=== PATIENT | male | born 1930 | race African-American/Black ===

== ENCOUNTER 2016-05-26 15:06 | Inpatient (IN) | payer MEDICARE, OTHER ==
--- NOTE | ~2016-05-26 | CT16 ---
[facility] A Service of [facility] & [facility] RADIOLOGY TEXT RESULTS PATIENT: RAFFI ROSS [facility] [id number] : 31 UNIT #: [id number] AGE: [address]: Lynda Salas MD SEX: M ORDER DR: [id number] [facility]. [place], [place] [address] [id number] MR#: [id number] Acc #: [id number] NAME: RAFFI ROSS : 1930 SEX: M STUDY DATE/TIME: 05/26/2016 18:23 UNIT: [facility] ROOM: STUDY DESCRIPTION: CT Angio Chest for PE Attending Physician: John Wheatley M.D. Ordering Physician: John Wheatley M.D. Primary Care Physician: Erasmo Abdi M.D. MEDICAL IMAGING REPORT This report is preliminary unless electronic signature is present EXAM CT scan of the chest with intravenous contrast, 05/26/2016 HISTORY Chest pain beginning at 8:00 a.m. this morning. Hypertension. Evaluate for pulmonary embolus. TECHNIQUE Spiral CT was performed through the chest following intravenous contrast administration using pulmonary embolus protocol. 3-D reconstructions of the chest were then performed following intravenous contrast administration. This CT exam was performed with one or more of the following radiation dose reduction techniques: Automatic exposure control, adjustment of mA and/or kV according to patient size, and iterative reconstruction. FINDINGS There are small emboli in the segmental branch of the right lower lobe pulmonary artery. Findings were called to the ordering clinician at 6:55 p.m. on 05/26/2016. The heart is normal in size. There is no significant thoracic adenopathy. There are no pleural effusions. Atelectasis is seen at the lung bases. Large calcified granuloma, right lower lobe. IMPRESSION Small emboli in the segmental branches of the right lower lobe pulmonary artery. STAT * RESULT Dictated by... [facility] A Service of [facility] & [facility] RADIOLOGY TEXT RESULTS PATIENT: RAFFI ROSS LOCATION: [facility] [id number] : 31 UNIT #: [id number] AGE: [address]: Lynda Salas MD SEX: M ORDER DR: Ozzie Dasilva M.D. THIS IS AN ELECTRONICALLY VERIFIED REPORT Ozzie Dasilva M.D. at 05/27/2016 8:00 AM KRT/nae TD: 05/26/2016 20:01 JOB #: [id number] MEDICAL IMAGING REPORT COPY
--- NOTE | ~2016-05-26 | CO ---
Unit #: [id number] #: [id number] Patient: RAFFI WALLER [id number] [facility]. [address] [address] [id number] I MR#: [id number] NAME: RAFFI WALLER ROOM: 550 Age: 85 Sex: M Admission Date: 05/26/2016 : 1930 Attending Physician: Don Weiss M.D. Primary Care Physician: Erasmo Abdi M.D. Consultation Date: 05/27/2016 CONSULTATION REPORT REASON FOR CONSULTATION Chest pain and pulmonary embolus, as well as cardiac management. HISTORY OF PRESENT ILLNESS This is a pleasant 85-year-old male who has been seen in the past by Dr. Vinson. He has a past medical history of [id number]-bukadopmz myocardial infarction, systolic congestive heart failure, stroke with right-sided residual, dementia, immobilization syndrome, chronic kidney disease, coronary artery disease, hypertension, hyperlipidemia, chronic anemia, chronic thrombocytopenia, BPH, and nonsustained ventricular tachycardia. The patient was admitted on 05/26/2016 secondary to complaints of chest pain. This was reported to be substernal in nature with no radiation. He also was found to have elevated D-dimer at 1400. CTA of the chest was performed which showed pulmonary embolus which appear to be small in the segmental branch of the right lower lobe. The patient has been started on Lovenox therapy. The patient also had a venous Doppler performed which was negative for any evidence of DVT. Initial EKG shows sinus rhythm, first-degree AV block, rate of 64 beats per minute, LVH with repolarization abnormality. Cannot rule out previous inferior infarct. No acute ischemic change. Nonspecific ST-T-wave abnormalities are noted. Initial cardiac enzymes have been negative x2. The patient did undergo cardiac catheterization in July 2013. Cath at that time, showed 50% stenosis in the left main, 50% stenosis in the proximal and mid LAD, and total occlusion of the RCA beyond the origin of the acute marginal branch with acute marginal branch 80% to 90% stenosis with collateralization. Recommendation at that time was medical management. He also had a 2D echocardiogram performed in December 2015 which did show improvement in his ejection fraction. EF at that time was 35% to 40%, impaired LV relaxation, significant hypokinesis of the apex, skct-mn-yeinqouf mitral regurgitation, mild tricuspid regurgitation, RVSP of 36 mmHg. He did have moderate pericardial effusion but no evidence of tamponade at that time. At present, the patient is resting in bed. He can give some information but is a poor historian. He is unsure of his medications. Apparently, he was admitted from home. His son, Cuate Waller, is the power of associate attorney and makes his medical decisions. At present, he denies any complaints of chest pain or shortness of breath. He is resting in bed. He appears comfortable. He does have contractures. Unit #: [id number] #: [id number] Patient: RAFFI WALLER The patient is being admitted secondary to his pulmonary embolus for further evaluation and treatment. PAST MEDICAL HISTORY 1. Known coronary artery disease with cardiac catheterization in July 2013 that showed 50% stenosis left main, 50% stenosis in the proximal to mid LAD, total occlusion of the RCA, beyond the acute marginal branch 80% to 90% stenosis with collateralization. Plan at that time was medical management. 2. Systolic congestive heart failure. Echocardiogram on 10/29/2013, showed an EF of 25% to 30%. Repeat echocardiogram in December 2015 showed EF of 35% to 40% with impaired LV relaxation, significant hypokinesis of the apex, ykrr-iy-musriulg MR, mild tricuspid regurgitation, RVSP of 36 mmHg, moderate pericardial effusion but no evidence of tamponade. 3. History of CVA with right-sided residual. 4. History of bradycardia secondary to beta malu usage. 5. Chronic kidney disease. 6. Chronic anemia. 7. Chronic thrombocytopenia. 8. BPH. 9. Hypertension. 10. Hyperlipidemia. 11. History of nonsustained ventricular tachycardia. 12. Immobilization syndrome. 13. Glaucoma. PAST SURGICAL HISTORY 1. Cataract surgery. 2. Hip replacement. 3. Urethral stimulator. 4. Cardiac catheterization in 2013. HOME MEDICATIONS 1. Plavix 75 mg p.o. daily. 2. Norvasc 10 mg p.o. daily. 3. Prinivil 10 mg p.o. b.i.d. 4. Aspirin 81 mg p.o. daily. 5. Flomax 0.4 mg p.o. daily. 6. Ativan 0.5 mg p.o. h.s. 7. Hydrocodone 5/325 one tab p.o. h.s. 8. Remeron 15 mg p.o. h.s. 9. Namenda 5 mg p.o. b.i.d. 10. Imdur ER 30 mg p.o. q.a.m. 11. Colace 100 mg p.o. daily. ALLERGIES No known drug allergies. SOCIAL HISTORY The patient is from home. He is wheelchair-bound. He does not ambulate. He has contractures. Denies any illicit drugs or alcohol. FAMILY HISTORY Noncontributory secondary to age. REVIEW OF SYSTEMS Unable to be obtained secondary to patient being a poor historian. Unit #: [id number] #: [id number] Patient: RAFFI WALLER PHYSICAL EXAMINATION VITAL SIGNS: Temperature 98.6, respiratory rate 18-20, pulse 60s to 70s, blood pressure 94/62 to 137/77, oxygen saturation 100% on 2 liters nasal cannula, BMI is 19. GENERAL: The patient is a pleasant 85-year-old male who is in no acute distress. He is contractured. He is resting in bed with no complaints at this time. HEENT: Pupils are equal and round. Mucous membranes are moist. NECK: Trachea is midline. No carotid bruits. No JVD. LUNGS: Clear to auscultation. Diminished in the bases. ABDOMEN: Soft, nontender, nondistended. Positive bowel sounds. EXTREMITIES: Pulses are palpable. No cyanosis, clubbing or edema. NEUROLOGIC: He is awake and oriented. He is able to answer simple questions and follow simple commands but is a poor historian. DIAGNOSTIC STUDIES LABORATORY: D-dimer was 1415. Sodium 132, potassium 3.6, chloride 99, CO2 was 27, BUN 12, creatinine 0.7, glucose 117. Troponins have been less than 0.04 times 2. Hemoglobin 14.3, hematocrit 43.7, WBC 11.9, platelet count 187. IMAGING: Chest x-ray shows no acute abnormalities. CTA of the chest shows small pulmonary emboli in the segmental branch of the right lower lobe of the pulmonary artery. CARDIOVASCULAR: EKG shows normal sinus rhythm, 64 beats per minute, first-degree AV block. Criteria for LVH. Cannot rule out previous inferior infarct. Nonspecific ST-T-wave abnormality is noted. No acute ischemia change. ASSESSMENT 1. Chest pain. 2. Pulmonary embolus, small, in the right lower lobe of the pulmonary artery. Venous Doppler was negative for DVT. 3. History of coronary artery disease. See above for prior cath result. 4. Congestive heart failure with ejection fraction of 30% to 35% per 2D echo in December 2015. 5. Hypertension. 6. Hyperlipidemia. 7. Cerebrovascular accident with right-sided residual. 8. Chronic kidney disease. 9. Chronic anemia. 10. Chronic thrombocytopenia. 11. Benign prostatic hypertrophy with chronic Mead catheter. 12. Immobility syndrome. 13. Dementia. 14. Patient is a DNR. PLAN 1. The patient has been admitted secondary to pulmonary emboli. At present he is stable. He has been started on Lovenox therapy. He is a poor historian and unable to give much information. However, Dr. Vinson has spoken with his power of associate attorney who is his son, Cuate Waller, today. It was confirmed with the son that the patient is a DNR. 2. His cardiac enzymes have been negative. He has ruled out for any Unit #: [id number] #: [id number] Patient: RAFFI WALLER acute coronary event. 3. We will have direct care professional to check cost of Eliquis as anticoagulation for his pulmonary embolus. However, the patient does have a history of hematuria in the past and will have to keep an eye out for this. His Plavix will be discontinued. 4. He will have CBC and BMP in the a.m. tomorrow. Dictated by... Sue Ca.P.RNasimaNNasima for Sruthi Vinson M.D. LMW/cs TD: 05/28/2016 21:29 JOB #: [id number] CONSULTATION REPORT X Lina Almendarez APRN X CONSULTATION REPORT
--- NOTE | ~2016-05-26 | CO ---
Unit #: [id number] #: [id number] Patient: RAFFI WALLER [id number] [address] [address] [id number] I MR#: [id number] NAME: RAFFI WALLER ROOM: 550 Age: 85 Sex: M Admission Date: 05/26/2016 : 1930 Attending Physician: Don Weiss M.D. Primary Care Physician: Erasmo Abdi M.D. Consultation Date: 05/30/2016 CONSULTATION REPORT CHIEF COMPLAINT Hematuria. HISTORY OF PRESENT ILLNESS Mr. Waller is an 85-year-old gentleman I have seen in the past with history of urinary retention, Mead catheter placed, chronic indwelling. 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 Patient diagnosed with a pulmonary embolus, started on anticoagulation. The patient is going to be going home with [facility] with the son. The son wanted him evaluated after he developed gross hematuria. The patient is resting comfortably in the bed and responded to questions appropriately. PAST MEDICAL HISTORY 1. Coronary artery disease. 2. Heart attack. 3. Stroke. 4. Chronic kidney disease. 5. Anemia. 6. Hypertension. 7. Hyperlipidemia. 8. Glaucoma. 9. Immobilization syndrome. 10. Cataract surgery. 11. Hip replacement. 12. Previous (1) stim placement. MEDICATIONS 1. Plavix. 2. Norvasc. 3. Prinivil. 4. Aspirin. 5. Flomax. 6. Imdur. 7. Colace. 8. Ativan. 9. Hydrocodone. 10. Remeron. 11. Namenda. 12. Nitrofurantoin. ALLERGIES No known drug allergies. Unit #: [id number] #: [id number] Patient: RAFFI WALLER SOCIAL HISTORY The patient does not smoke. EXAM Afebrile. Abdomen soft. He is contracted. Mead catheter is in place. He has a diaper on. Urine in the catheter is red, somewhat dark. No visible clots. ASSESSMENT Gross hematuria in a patient who is going to be going home with [facility]. Would irrigate the catheter p.r.n. Patient not a surgical candidate. Could place a three-way catheter but if he is going to be at home, not really amenable to having a three-way drip going. More could be done if desired by the patient or the son but, at this time, I would just irrigate the catheter considering he his going to be going home with [facility]. Thanks again for the referral. Dictated by... Rafia Rowan/yovani TD: 05/31/2016 14:20 JOB #: [id number] CONSULTATION REPORT X Manish Valdez MD X CONSULTATION REPORT
--- NOTE | ~2016-05-26 | HP ---
Unit #: [id number] #: [id number] Patient: RAFFI ROSS [id number] [place], [place] [address] [id number] E MR#: [id number] NAME: RAFFI ROSS ROOM: Age: 85 Sex: M Admission Date: 05/26/2016 : 1930 Attending Physician: John Wheatley M.D. Primary Care Physician: Erasmo Abdi M.D. HISTORY AND PHYSICAL CHIEF COMPLAINT Chest pain. HISTORY OF PRESENT ILLNESS The patient is an 85-year-old male with past medical history of hypertension, hyperlipidemia, coronary artery disease, CHF, cerebrovascular accident, chronic kidney disease, chronic anemia, chronic thrombocytopenia, BPH, nonsustained ventricular tachycardia, immobility, dementia, who presented to the emergency department for evaluation of the above. The patient is a poor historian. He apparently was complaining of chest pain. He states that it started yesterday. He states it is mostly in the right side of his chest. He describes it as "a 6," it has been fairly constant. He states that it radiates down his right arm. He denies any nausea. He possibly has associated shortness of breath. He denies any fever. No cough or cold symptoms. In the emergency department, initial pulse and blood pressure were 66 and 153/91 respectively, oxygen saturation was 100% on 2 liters. Chest x-ray showed no acute abnormality. D-dimer was elevated at 1415. The patient had a CT of the chest PE protocol that showed a small emboli in the right lower lobe pulmonary artery. He is being admitted to [facility] for evaluation and further treatment. PAST MEDICAL HISTORY 1. Admission to [facility] 01/09/2016 for chest pain. 2. Coronary artery disease. The patient had a cardiac catheterization in July 2013 that showed 50% stenosis in the left main, 50% stenosis in the proximal med LAD, total occlusion of the RCA with acute marginal branch 80% and 90% stenosis with collateralization. The plan was medical management. 3. Congestive heart failure. The patient had an echocardiogram 10/29/2013 that showed an ejection fraction of 25% to 30% with inferior wall akinesis, mild mitral regurgitation, mild aortic regurgitation, right ventricular systolic pressure was elevated at 30-40 mmHg. The patient has seen Dr. Vinson in the past. 4. History of cerebrovascular accident with right-sided residual. 5. History of bradycardia. 6. Chronic kidney disease. 7. History of anemia. 8. BPH with chronic Mead catheter. 9. Chronic thrombocytopenia. Unit #: [id number] #: [id number] Patient: RAFFI ROSS 10. Hypertension. 11. Hyperlipidemia. 12. History of nonsustained ventricular tachycardia. 13. Glaucoma. 14. Immobilization syndrome. PAST SURGICAL HISTORY 1. Cataract surgery. 2. Hip replacement. 3. Urethral stimulator. ALLERGIES No known allergies. HOME MEDICATIONS Include: 1. Plavix. 2. Norvasc. 3. Prinivil. 4. Aspirin. 5. Flomax. 6. Ativan. 7. Hydrocodone. 8. Remeron. 9. Namenda. 10. Nitrofurantoin. 11. Imdur. 12. Colace. Home medications will need to be reviewed and verified. SOCIAL HISTORY Per record review, there is no tobacco or alcohol use. The patient is wheelchair bound. FAMILY HISTORY Noncontributory secondary to age. REVIEW OF SYSTEMS A complete review of systems is negative except as indicated in the HPI. PHYSICAL EXAMINATION VITAL SIGNS: Temperature 98.6, pulse 66, respirations 13, blood pressure 153/91, oxygen saturation 100% on 2 liters. GENERAL: The patient is an male who is awake and alert in no acute distress. HEENT: Head is atraumatic. Mucous membranes are moist. NECK: Supple. Trachea is midline. LUNGS: Clear to auscultation bilaterally with no increased work of breathing. HEART: Regular rate and rhythm. ABDOMEN: Soft, nontender. Bowel sounds present in all four quadrants. EXTREMITIES: No pedal edema. The patient does have contracture involving the right upper extremity. NEUROLOGIC: Patient is awake and alert. He is oriented to person only. [facility] and the year was 1959. He is moving all extremities. He follows some commands. PSYCHIATRIC: Mood and affect are normal. Patient is cooperative. Unit #: [id number] #: [id number] Patient: RAFFI ROSS SKIN OF EXAMINED AREAS: Warm and dry. DIAGNOSTIC STUDIES LABORATORY: D-dimer 1415. Comprehensive metabolic panel notable for a chloride 98. INR 1. Troponin less than 0.05. Complete blood count is essentially normal. IMAGING: Chest x-ray shows no acute abnormalities. CT of the chest PE protocol shows small emboli involving the right lower lobe pulmonary artery. CARDIOVASCULAR: EKG shows sinus rhythm with first-degree AV block, an occasional PVC at a rate of 64 beats per minute. ASSESSMENT The patient is an 85-year-old male with: 1. Pulmonary embolism. There is an order for Lovenox that has not been given yet. 2. Hypertension. 3. Hyperlipidemia. 4. History of coronary artery disease. 5. Congestive heart failure with an ejection fraction of 25% to 30% from echocardiogram 10/29/2013. 6. Cerebrovascular accident with right-sided residual. 7. Chronic kidney disease. The patient's creatinine is actually 0.8 today. 8. Chronic anemia. Hemoglobin is 13.4 today. 9. Chronic thrombocytopenia. Platelets are 207 today actually. 10. Benign prostatic hypertrophy with chronic Mead catheter. 11. History of nonsustained ventricular tachycardia. 12. Dementia. 13. Immobility. PLAN 1. Admit to immediate level. 2. 2 gram sodium 1800 mL fluid restricted heart healthy diet if passes bedside swallow. 3. Lovenox 1 mg/kg subcu q.12 h. with first dose now. 4. Consult Dr. Pham regarding PE. 5. 2D echo for further evaluation of PE and possible right heart strain. 6. Bilateral lower extremity venous Dopplers. 7. Serial cardiac enzymes. 8. Strict I's and O's. 9. Urinalysis with culture and sensitivity. 10. Daily weights. 11. Fall precautions. 12. Supplemental oxygen for saturations greater than 92%. 13. Repeat labs in the morning. 14. Additional workup and consultants based on above. Unit #: [id number] #: [id number] Patient: RAFFI ROSS Dictated by Rafia Gordon/keesha TD: 05/26/2016 20:47 JOB #: [id number] HISTORY AND PHYSICAL X Lynda Salas MD HISTORY AND PHYSICAL
--- NOTE | ~2016-05-26 | CO ---
Unit #: [id number] #: [id number] Patient: RAFFI ROSS [id number] [address] [address] [id number] I MR#: [id number] NAME: RAFFI ROSS ROOM: 550 Age: 85 Sex: M Admission Date: 05/26/2016 : 1930 Attending Physician: Don Weiss M.D. Primary Care Physician: Erasmo Abdi M.D. Consultation Date: 05/27/2016 CONSULTATION REPORT REASON FOR CONSULT Pulmonary emboli, please evaluate. HISTORY OF PRESENT ILLNESS This 85-year-old gentleman, who is totally bedbound, is an extremely poor historian, states that he is currently not hurting in his chest but it appears from the chart that he came in with chest pain. He has a very long past history of coronary artery disease, hypertension, hyperlipidemia, congestive heart failure, CVA, chronic kidney disease, chronic anemia who is totally bedbound at home, was found to have small volume, unprovoked pulmonary emboli. D-dimer was 1415. We were requested to evaluate. In talking to the patient, it is nearly impossible for him to give me any meaningful history at all. He states that he is not hurting currently so the majority of this was obtained from the chart mainly. PAST MEDICAL HISTORY 1. Coronary artery disease. 2. Congestive heart failure. 3. CVA. 4. CKD. 5. Anemia and thrombocytopenia. 6. History of hypertension. 7. Glaucoma. 8. Immobilization syndrome which I am not sure is well documented on the chart. SOCIAL HISTORY Patient is bedbound. Uses a Hoya chair to get out of bed. Nonsmoker. No alcohol usage. He is currently retired and disabled. FAMILY HISTORY Unobtainable as the patient does not remember. REVIEW OF SYSTEMS Limited. No chest pain. He states he is feeling fine and otherwise six or eight systems were not very reliably evaluable. PHYSICAL EXAMINATION LUNGS: Crackles. He did not cooperate in taking deep breaths. HEART: Distant S1, S2. ABDOMEN: No organomegaly. EXTREMITIES: There is contractures upper and lower extremity. There is 1+ edema in the lower extremity. No pulses are palpable in the upper and Unit #: [id number] #: [id number] Patient: RAFFI ROSS lower extremities. NEUROLOGIC: Extremely difficult to evaluate and I did not do a complete PLATE GRAINER exam. Patient appears to have severe dementia and lack of cooperation for the PLATE GRAINER exam. RECTAL: Not performed. DIAGNOSTIC STUDIES LABORATORY: Chemistries glucose 93, BUN 14, creatinine 0.8, sodium 138, potassium 3.8, chloride 98, CO2 of 31. Hemoglobin 13.4, hematocrit 40.5, white count 9600, platelets 207,000. IMAGING: CT angio of the chest was reviewed and it appears that he has very small volume pulmonary emboli in right lower lobe pulmonary artery segmental branches. No evidence of large volume. IMPRESSION This 85-year-old gentleman with no past history of pulmonary emboli or DVT, does have evidence of small volume, unprovoked pulmonary emboli and as he is bedbound it is not clear if it is lower extremity as the source of his pulmonary emboli or not. So, at this point, I would agree that we need to do bilateral lower extremity Doppler studies. His D-dimer is 1415, most probably will have to treat him with low dose oral anticoagulation, preferably like Eliquis depending on the volume of the clots. Will evaluate lower extremity Dopplers and follow with you. Dictated by... Rafia Dang/keesha TD: 05/28/2016 15:34 JOB #: [id number] CONSULTATION REPORT X Iron Pham MD X CONSULTATION REPORT
--- NOTE | ~2016-05-26 | DS ---
Unit #: [id number] #: [id number] Patient: RAFFI WALLER [id number] [address] [address] [id number] I MR#: [id number] NAME: RAFFI WALLER ROOM: 550 Age: 85 Sex: M Admission Date: 05/26/2016 : 1930 Discharge Date: 05/30/2016 Attending Physician: Don Weiss M.D. Primary Care Physician: Erasmo Abdi M.D. DISCHARGE SUMMARY ADMISSION DIAGNOSES 1. Pulmonary embolism. 2. Hypertension. 3. Hyperlipidemia. 4. History of coronary artery disease. 5. Congestive heart failure with ejection fraction of 25% to 30% from echocardiogram 10/29/2013. 6. Cerebrovascular accident with right hand residual. 7. Chronic kidney disease. 8. Chronic anemia. 9. Chronic thrombocytopenia. 10. Benign prostatic hypertrophy with chronic Mead catheter. 11. History of nonsustained ventricular tachycardia. 12. Dementia. 13. Immobility. DISCHARGE DIAGNOSES 1. Gross hematuria. 2. Pulmonary embolism. 3. Hypertension. 4. Hyperlipidemia. 5. History of coronary artery disease. 6. History of congestive heart failure with ejection fraction 25% to 30% from echocardiogram 10/29/2013. 7. Cerebrovascular accident with right sided residual weakness. 8. Chronic kidney disease. 9. Chronic anemia. 10. Chronic thrombocytopenia. 11. Benign prostatic hypertrophy with chronic Mead catheter. 12. History of nonsustained ventricular tachycardia. 13. Dementia. 14. Immobility. CONSULTANTS 1. Dr. Sruthi Vinson - Cardiology. 2. Dr. Manish Valdez - [facility] Urology. 3. Dr. Iron Pham - Hematology. DIAGNOSTIC STUDIES LABORATORY: Recent lab work - WBC 7.9, hemoglobin 12.5, hematocrit 38.3, platelets 144,000. TSH 2.04. Sodium 141, potassium 4.2, chloride 102, CO2 28, glucose 84, BUN 25, creatinine 0.8, calcium 9.3. Urine culture final - yeast present. Unit #: [id number] #: [id number] Patient: RAFFI WALLER IMAGING: CTA of the chest 05/26/16. Impression - small emboli in the segmental branches of the right lower lobe of the pulmonary artery. Bilateral lower extremity duplex venous Doppler. Impression - negative examination. No evidence of lower extremity DVT. Vital signs - temperature 98.2, pulse 77, respirations 20, blood pressure 138/58. Oxygen saturation 96% on room air. DISCHARGE MEDICATIONS 1. Flomax 0.4 mg p.o. daily. 2. Mirtazapine 15 mg p.o. at bedtime. 3. Ativan 0.5 mg p.o. at bedtime from home medication supply. No prescription written. 4. Colace 100 mg p.o. daily. 5. Namenda 5 mg p.o. b.i.d. 6. Aspirin EC 81 mg p.o. every 24 hours. 7. Prinivil 5 mg p.o. daily. 8. Hydrocodone/APAP 5/325 mg tab, one p.o. at bedtime from home medication supply. No prescription written. 9. Imdur ER 30 mg p.o. every morning. Please note the following medication changes: 1. Patient's Prinivil has been changed from 10 mg p.o. b.i.d. to 5 mg p.o. daily. 2. Plavix, Lovenox and Eliquis have been discontinued for gross hematuria per order of Dr. Weiss. DIET Healthy heart diet as tolerated. Per review of the care management note, discussion with Dr. Weiss and the [facility] nurse at [phone], the plan is for further discussion with the patient's son prior to finalizing plans for [facility] care at home. The plan is for discharge home by ambulance this afternoon and further care turned over to [facility] who plans to continue conversation with the son regarding admission to [facility] care. I have asked also that the patient's son be provided with number to [facility] home health services as well as [facility] to call and follow up for patient care after discharge. HOSPITAL COURSE The patient is an 85-year-old male with multiple complex medical issues including history of hypertension, hyperlipidemia, coronary artery disease, congestive heart failure, CVA, chronic kidney disease, chronic anemia, chronic thrombocytopenia, BPH, nonsustained ventricular tachycardia, immobility and dementia, who presented to our emergency department for evaluation of chief complaint of chest pain. Per review of the history and physical report, the majority of the history was from review of records. The patient is described as a poor historian due to history of dementia. A CT of the chest with PE protocol showed small emboli involving the right lower lobe of the pulmonary artery. The patient's EKG showed that he was first degree AV block with an occasional PVC and rate of 64 beats/minute. Patient was treated in the emergency department with Lovenox 1 mg/kg with orders for the same dose q.[address] Pham was consulted for further hematology evaluation and management. The patient was transferred to Unit #: [id number] #: [id number] Patient: RAFFI WALLER intermediate level with telemetry and a 2D echocardiogram was ordered. Dr. Vinson was consulted for cardiac evaluation and management. Patient was initially prescribed Eliquis with plans for discharge. The patient was determined to be stable from a cardiac standpoint and cardiology signed off on 05/28/16. The patient underwent lower extremity venous Dopplers which were negative for DVT as the patient was a totally bedbound patient. Dr. Pham was in agreement with Eliquis and signed off of care on 05/28/16 as well. It appears cardiology was re-consulted for complaints of possible left shoulder pain on 05/28/16. It was considered at that time the possibility for [facility] evaluation. Cardiology discussed the patient's condition over the phone with Mr. Waller's son and [facility], given the patient had experienced a change in heart rhythm to second degree AV block, Mobitz type 1. Patient's son was informed at that time that given patient's medical condition there was a possibility for advancement of the arrhythmia to a higher grade AV block which could potentially result in asystole. The son was noted to state that he did not want any heroic measures for his father and requested a continuation of DNR status. [facility] consult was written and the [facility]. According to my discussion with the [facility] nurse at [phone] this afternoon, that they are in active discussions with the patient's son for [facility] care at home. However, the patient developed gross hematuria today and all anticoagulants have been held. The patient was evaluated today by Dr. Manish Valdez, [facility]. The patient has a chronic Mead catheter. His recommendation is to irrigate the Mead catheter p.r.n. with a Aleksandra syringe and saline given the patient's plan for discharge home and ultimately [facility] care. The patient's H and H are stable. I have discussed this patient over the telephone with Dr. Weiss. The patient's Lovenox, Eliquis and Plavix have been discontinued per his order due to gross hematuria. This has also been discussed with Lina Almendarez of the cardiology service. At this time, the plan is for the patient to be transferred per ambulance home with his son later this evening. All further medical management will be per [facility] care, specifically recommendations of [facility] physicians. Dictated by... Uzma Thomson A.P.R.N. for Rafia Yang/yovani TD: 05/31/2016 08:11 JOB #: [id number] DISCHARGE SUMMARY X Uzma Thomson APRN X DISCHARGE SUMMARY
--- NOTE | ~2016-05-26 | US84 ---
[id number] [facility] [address] [place], [place] [address] [id number] MR#: [id number] Acc #: [id number] NAME: RAFFI ROSS : 1930 SEX: M STUDY DATE/TIME: 05/26/2016 21:02 UNIT: C5B ROOM: [facility] STUDY DESCRIPTION: US LE Veins Complete Juan Daniel Stdy Attending Physician: Don Weiss M.D. Ordering Physician: Lynda Salas M.D. Primary Care Physician: Erasmo Abdi M.D. MEDICAL IMAGING REPORT This report is preliminary unless electronic signature is present EXAM Bilateral lower extremity venous Doppler HISTORY Bilateral lower extremity pain for 2 days. Shortness of air. TECHNIQUE Venous ultrasound examination of both lower extremities was performed using grayscale, spectral Doppler and color flow Doppler imaging. FINDINGS The examination is negative. There is no evidence of deep venous thrombus from the groin to the lower calf bilaterally. Visualized greater saphenous veins are also patent. IMPRESSION Negative examination. No evidence of lower extremity deep venous thrombosis. Dictated by... Nichelle Marsh M.D. THIS IS AN ELECTRONICALLY VERIFIED REPORT Nichelle Marsh M.D. at 05/27/2016 6:33 PM KEN/fatoumata TD: 05/27/2016 09:48 JOB #: [id number] MEDICAL IMAGING REPORT COPY
--- NOTE | ~2016-05-26 | EKG ---
PATIENT: RAFFI ROSS UNIT #: [id number] Ventricular Rate: 44 BPM Atrial Rate: 76 BPM QRS Duration: 102 ms Q-T Interval: 404 ms QTC Calculation(Bezet): 345 ms P [place]: 75 degrees Calculated R [place]: 44 degrees Calculated T [place]: -91 degrees Diagnosis Line: Sinus rhythm with 2nd degree A-V block (Mobitz I) Diagnosis Line: with 2:1 A-V conduction Diagnosis Line: Possible Inferior infarct (cited on or before Diagnosis Line: 29-NOV-2013) Diagnosis Line: ST and T wave abnormality, consider lateral ischemia Diagnosis Line: Abnormal ECG Diagnosis Line: When compared with ECG of 26-MAY-2016 13:29, Diagnosis Line: Premature ventricular complexes are no longer Diagnosis Line: Present Diagnosis Line: Sinus rhythm is now with 2nd degree A-V block Diagnosis Line: (Mobitz I) Diagnosis Line: QT has shortened Diagnosis Line: Confirmed by MONA HENSON MD ([id number]) on 05/28/2016 Diagnosis Line: 9:58:39 PM INTERPRETING MD: NATIVIDAD ZIMMERMAN
--- NOTE | ~2016-05-26 | EKG ---
PATIENT: RAFFI ROSS UNIT #: [id number] Ventricular Rate: 64 BPM Atrial Rate: 64 BPM P-R Interval: 248 ms QRS Duration: 98 ms Q-T Interval: 404 ms QTC Calculation(Bezet): 416 ms P [place]: 75 degrees Calculated R [place]: 49 degrees Calculated T [place]: -62 degrees Diagnosis Line: Sinus rhythm with 1st degree A-V block with Diagnosis Line: occasional Premature ventricular complexes Diagnosis Line: Left ventricular hypertrophy with repolarization Diagnosis Line: abnormality Diagnosis Line: Possible Inferior infarct (cited on or before Diagnosis Line: 29-NOV-2013) Diagnosis Line: Abnormal ECG Diagnosis Line: When compared with ECG of 10-JAN-2016 05:24, Diagnosis Line: Premature ventricular complexes are now Present Diagnosis Line: Confirmed by DEANNA MORA MD ([id number]) on Diagnosis Line: 05/26/2016 3:29:06 PM INTERPRETING MD: ABBY ZIMMERMAN
--- NOTE | ~2016-05-26 | CR72 ---
[facility] A Service of [facility] RADIOLOGY TEXT RESULTS PATIENT: RAFFI ROSS LOCATION: [facility] [id number] : [birth year] UNIT #: [id number] AGE: [address]: Lynda Salas MD SEX: M ORDER DR: [id number] [facility] [address] [place], [place] [address] [id number] MR#: [id number] Acc #: [id number] NAME: RAFFI ROSS : 1930 SEX: M STUDY DATE/TIME: 05/26/2016 13:50 UNIT: [facility] ROOM: STUDY DESCRIPTION: CR Chest Single View Portable Attending Physician: John Wheatley M.D. Ordering Physician: Ayesha Angulo M.D. Primary Care Physician: Erasmo Abdi M.D. MEDICAL IMAGING REPORT This report is preliminary unless electronic signature is present EXAM Portable chest 05/26/2016 INDICATIONS Shortness of air and chest pain this morning 05/26/2016 COMPARISON STUDIES 01/09/2016 A portable view of the chest was obtained. FINDINGS The heart size and vascularity are normal. The lungs are clear. There is a calcified granuloma in the right lower lobe. The bones show degenerative change in both shoulders. IMPRESSION No active disease. Dictated by... Link Glaser M.D. THIS IS AN ELECTRONICALLY VERIFIED REPORT Link Glaser M.D. at 05/26/2016 9:46 PM Subhash TD: 05/26/2016 18:31 JOB #: [id number] MEDICAL IMAGING REPORT COPY
[2016-05-26 14:00] LABS: BASOPHIL% 0.3 % (0-2.5); EOSINOPHIL# 0.1 X10e3 (0-0.7); EOSINOPHIL% 0.7 % (0.0-7.0); HEMATOCRIT 40.5 % (38.0-50.0); HEMOGLOBIN 13.4 gm/dL (13.0-16.0); LYMPHOCYTE# 1.6 X10e3 (1.0-3.5); MEAN CELL VOLUME 94.6 FL (83-96); MEAN CORPUSCULAR HEMOGLOBIN 31.2 PG (28-34); MEAN PLATELET VOLUME 9.6 FL (6.5-11.5); MONOCYTE# 0.8 X10e3 (0-1.0); MONOCYTE% 8.4 % (3.0-12.0); NEUTROPHIL# 7.1 X10e3 (1.5-7.1); NEUTROPHIL% 73.6 % (40-75); PLATELET COUNT 207 X10e3 (140-420); RED BLOOD COUNT 4.29 X10e (3.90-5.60); RED CELL DISTRIBUTION WIDTH 15.8 % (11.0-15.5); WHITE BLOOD COUNT 9.6 X10e3 (4.0-10.5)
[2016-05-26 14:07] LABS: DIFF IND NO
[2016-05-26 14:12] LABS: POC - CKMB <1.0 ng/mL (0.0-7.9); POC - TROPONIN <0.05 ng/mL (<=0.05)
[~2016-05-26 15:06] MED LIST: ACETAMINOPHEN325 MG PO; ADALATCC PO; ALPHAGAN P5 ML; ALPHAGAN P5 ML OP; AMIODARONE PO; AMLODIPINE BESY10 MG PO; ANEXSIA 5/325 M1 TA1 PO; ASPIRIN325 M1 PO; ASPIRIN81 MG PO; ATENOLOL PO; ATIVAN0.5 M1 PO; AVODART0.5 MG PO; BAYER CHEWABLE81 MG PO; CLONIDINE PO; CLOPIDOGREL75 MG PO; COLACE PO; COREG12.5 MG PO; COREG3.125 MG PO; COSOPT EYE DROPS5 ML; COSOPT EYE DROPS5 ML OP; DITROPAN5 MG; DORZOLAMIDE HCL10 ML; FAMOTIDINE PO; FERREX 150 PLU1 EACH PO; FLOMAX0.4 M1 PO; FLOMAX0.4 MG PO; FLORASTOR250 M1 PO; HCTZ PO; HYDRALAZINE HCL50 MG PO; HYDROCODON-ACE1 EACH PO; HYDROCODONE-APA1 T57 PO; IMDUR-ER30 M1 PO; ISORDIL PO; K-DUR20 ME1 DOB; K-DUR20 ME1 PO; KLOR-CON PO; LASIX PO; MICRO-K10 ME1 PO; MILK OF MAGNESIA PO; NAMENDA5 MG PO; NAPROXEN PO; NIFEDIPINE ER90 MG PO; NITROFURANTOIN100 M3 PO; NITROGLYGERIN0.4 MG SL; NORCO 5/325 TAB1 TAB PO; NORCO1 TAB 10/3 PO; NORVASC10 MG PO; PLAVIX PO; PRINIVIL5 MG PO; REMERON15 MG PO; VESICARE; XALATAN OP; XALATAN OU; ZESTRIL10 MG PO; ZOCOR20 MG PO; [UNRECOGNIZED DRUG - OTHER] OU
[2016-05-26 15:18] LABS: PARTIAL THROMBOPLASTIN TIME 27.4 SECONDS (23.5-31.3); PROTHROMBIN TIME (PATIENT) 10.6 SECONDS (9.6-11.5)
[2016-05-26 15:35] LABS: ALBUMIN SERUM 3.9 g/dL (3.5-5.0); ALKALINE PHOSPHATASE 61 U/L (32-92); ALT (SGPT) 11 U/L (10-40); AST (SGOT) 19 U/L (10-42); BILIRUBIN, DIRECT 0.2 mg/dL (0.0-0.2); BILIRUBIN,INDIRECT 1.1 mg/dL (0.0-0.9); BILIRUBIN,TOTAL 1.3 mg/dL (0.2-2.0); BLOOD UREA NITROGEN 14 mg/dL (9-23); CALCIUM SERUM 9.5 mg/dL (8.4-10.2); CARBON DIOXIDE 31 mmol/L (22-31); CHLORIDE 98 mmol/L (100-111); CREATININE SERUM 0.8 mg/dL (0.6-1.4); GLOM FILT RATE Estimated ABOVE60 mL/min (>60); GLUCOSE FASTING 93 mg/dL (70-110); POTASSIUM 3.8 mmol/L (3.5-5.1); PROTEIN TOTAL SERUM 7.4 g/dL (6.0-8.3); SODIUM 138 mmol/L (135-145)
[2016-05-26 23:20] LABS: CK TOTAL 58 IU/L (36-174)
[2016-05-27 03:17] LABS: BASOPHIL% 0.3 % (0-2.5); EOSINOPHIL% 0.3 % (0.0-7.0); HEMATOCRIT 43.7 % (38.0-50.0); HEMOGLOBIN 14.3 gm/dL (13.0-16.0); LYMPHOCYTE# 1.8 X10e3 (1.0-3.5); MEAN CELL VOLUME 95.3 FL (83-96); MEAN CORPUSCULAR HEMOGLOBIN 31.2 PG (28-34); MEAN CORPUSCULAR HGB CONC 32.7 g/dL (30-36); MEAN PLATELET VOLUME 9.5 FL (6.5-11.5); MONOCYTE# 0.9 X10e3 (0-1.0); MONOCYTE% 7.3 % (3.0-12.0); NEUTROPHIL# 9.2 X10e3 (1.5-7.1); NEUTROPHIL% 77.1 % (40-75); PLATELET COUNT 187 X10e3 (140-420); RED BLOOD COUNT 4.59 X10e (3.90-5.60); RED CELL DISTRIBUTION WIDTH 15.5 % (11.0-15.5); WHITE BLOOD COUNT 11.9 X10e3 (4.0-10.5)
[2016-05-27 03:22] LABS: DIFF IND NO
[2016-05-27 03:32] LABS: PROTHROMBIN TIME (PATIENT) 10.7 SECONDS (9.6-11.5)
[2016-05-27 03:45] LABS: ALBUMIN SERUM 4.1 g/dL (3.5-5.0); ALKALINE PHOSPHATASE 60 U/L (32-92); ALT (SGPT) 10 U/L (10-40); AST (SGOT) 18 U/L (10-42); BILIRUBIN,TOTAL 1.7 mg/dL (0.2-2.0); BLOOD UREA NITROGEN 12 mg/dL (9-23); BUN/CREATININE RATIO 17.14; CALCIUM SERUM 9.1 mg/dL (8.4-10.2); CARBON DIOXIDE 27 mmol/L (22-31); CHLORIDE 99 mmol/L (100-111); CREATININE SERUM 0.7 mg/dL (0.6-1.4); GLOM FILT RATE Estimated ABOVE60 mL/min (>60); GLUCOSE FASTING 117 mg/dL (70-110); POTASSIUM 3.6 mmol/L (3.5-5.1); PROTEIN TOTAL SERUM 7.5 g/dL (6.0-8.3); SODIUM 132 mmol/L (135-145)
[2016-05-27 04:03] LABS: URINE SOURCE CLEAN CATCH
[2016-05-27 04:10] LABS: URINE APPEARANCE CLOUDY; URINE BILIRUBIN NEG (NEG); URINE BLOOD TRACE (NEG); URINE COLOR YELLOW; URINE GLUCOSE NEG (NEG); URINE KETONE TRACE (NEG); URINE LEUKOCYTE ESTERASE 2+ (NEG); URINE NITRATE NEG (NEG); URINE PH 7.5 (5-8); URINE PROTEIN TRACE (NEG); URINE SPECIFIC GRAVITY 1.021 (1.003-1.035); URINE UROBILINOGEN 0.2 MG/DL (NEG)
[2016-05-27 04:11] LABS: %MB 3.7 % (0.0-4.0); MB 2.3 ng/ml
[2016-05-27 04:13] LABS: CULTURE INDICATED? YES; URINE BACTERIA AUWI NEG (NEGATIVE); URINE SQUAMOUS EPITHELIAL CELL FEW /[HPF]; UWBCS1 AUWI 25-50 (0-5)
[2016-05-27 04:22] LABS: URINE YEAST PRESENT
[2016-05-28 10:22] LABS: HEMATOCRIT 39.8 % (38.0-50.0); MEAN CELL VOLUME 93.8 FL (83-96); MEAN CORPUSCULAR HEMOGLOBIN 30.6 PG (28-34); MEAN CORPUSCULAR HGB CONC 32.6 g/dL (30-36); MEAN PLATELET VOLUME 9.3 FL (6.5-11.5); RED BLOOD COUNT 4.24 X10e (3.90-5.60); RED CELL DISTRIBUTION WIDTH 15.6 % (11.0-15.5); WHITE BLOOD COUNT 11.8 X10e3 (4.0-10.5)
[2016-05-28 10:46] LABS: BLOOD UREA NITROGEN 21 mg/dL (9-23); CALCIUM SERUM 9.6 mg/dL (8.4-10.2); CARBON DIOXIDE 27 mmol/L (22-31); CHLORIDE 98 mmol/L (100-111); CREATININE SERUM 0.7 mg/dL (0.6-1.4); GLOM FILT RATE Estimated ABOVE60 mL/min (>60); GLUCOSE FASTING 96 mg/dL (70-110); POTASSIUM 3.7 mmol/L (3.5-5.1); SODIUM 135 mmol/L (135-145)
[2016-05-29 06:17] LABS: HEMATOCRIT 40.1 % (38.0-50.0); HEMOGLOBIN 13.1 gm/dL (13.0-16.0); MEAN CELL VOLUME 95.8 FL (83-96); MEAN CORPUSCULAR HEMOGLOBIN 31.3 PG (28-34); MEAN CORPUSCULAR HGB CONC 32.7 g/dL (30-36); MEAN PLATELET VOLUME 9.3 FL (6.5-11.5); RED BLOOD COUNT 4.19 X10e (3.90-5.60); RED CELL DISTRIBUTION WIDTH 15.5 % (11.0-15.5); WHITE BLOOD COUNT 9.1 X10e3 (4.0-10.5)
[2016-05-29 06:58] LABS: BLOOD UREA NITROGEN 25 mg/dL (9-23); BUN/CREATININE RATIO 31.25; CALCIUM SERUM 9.3 mg/dL (8.4-10.2); CARBON DIOXIDE 28 mmol/L (22-31); CHLORIDE 102 mmol/L (100-111); CREATININE SERUM 0.8 mg/dL (0.6-1.4); GLOM FILT RATE Estimated ABOVE60 mL/min (>60); GLUCOSE FASTING 84 mg/dL (70-110); POTASSIUM 4.2 mmol/L (3.5-5.1); SODIUM 141 mmol/L (135-145)
[2016-05-30 10:23] LABS: HEMATOCRIT 38.3 % (38.0-50.0); HEMOGLOBIN 12.5 gm/dL (13.0-16.0); MEAN CORPUSCULAR HEMOGLOBIN 30.8 PG (28-34); MEAN CORPUSCULAR HGB CONC 32.7 g/dL (30-36); MEAN PLATELET VOLUME 11.1 FL (6.5-11.5); RED BLOOD COUNT 4.07 X10e (3.90-5.60); RED CELL DISTRIBUTION WIDTH 15.5 % (11.0-15.5); WHITE BLOOD COUNT 7.9 X10e3 (4.0-10.5)
== END 2016-05-30 21:10 | DRG 176 ==
LOC: CED 15:06 → CEDOF 19:35 → C5B 05-27 08:49
PROVIDERS: Emergency Medicine; Family Medicine; Internal Medicine; Internal Medicine Cardiovascular Disease; Nurse Practitioner
DX: I26.99 Other pulmonary embolism without acute cor pulmonale (principal); I50.22 Chronic systolic (congestive) heart failure; F03.90 Unspecified dementia, unspecified severity, without behavioral disturbance, psychotic disturbance, mood disturbance, and anxiety; I69.351 Hemiplegia and hemiparesis following cerebral infarction affecting right dominant side; Z51.5 Encounter for palliative care; E78.5 Hyperlipidemia, unspecified; I25.10 Atherosclerotic heart disease of native coronary artery without angina pectoris; R31.0 Gross hematuria; I12.9 Hypertensive chronic kidney disease with stage 1 through stage 4 chronic kidney disease, or unspecified chronic kidney disease; N18.9 Chronic kidney disease, unspecified; D63.1 Anemia in chronic kidney disease; D69.6 Thrombocytopenia, unspecified; N40.0 Benign prostatic hyperplasia without lower urinary tract symptoms; M62.3 Immobility syndrome (paraplegic); I34.0 Nonrheumatic mitral (valve) insufficiency; H40.9 Unspecified glaucoma; Z96.649 Presence of unspecified artificial hip joint; Z98.49 Cataract extraction status, unspecified eye; Z79.01 Long term (current) use of anticoagulants; Z66 Do not resuscitate
CPT/HCPCS: 36415; 71010; 71275; 80048; 80053; 80076; 81003; 82550; 82553; 82947; 84443; 84484; 85025; 85027; 85379; 85610; 85730; 87086; 93005; 93306; 93970; 94760; 99285; J1650; Q9967